=== PATIENT | male | born 1985 | race African-American/Black ===

== ENCOUNTER 2019-03-02 16:00 | Emergency (ER) | payer OTHER ==
[~2019-03-02] VITALS: Ht 167.6 cm; Wt 140.6 kg
[2019-03-02 17:30] VITALS: BP 168/78
== END 2019-03-02 17:30 | disposition home or self-care (01) ==
LOC: ER 16:00
DX: J02.0 Streptococcal pharyngitis (principal)

== ENCOUNTER 2019-10-22 16:25 | Emergency (ER) | payer BC ==
[~2019-10-22] VITALS: Ht 167.6 cm; Wt 138.3 kg
[2019-10-22 17:10] VITALS: BP 132/104
== END 2019-10-22 17:09 | disposition home or self-care (01) ==
LOC: ER 16:25
DX: J06.9 Acute upper respiratory infection, unspecified (principal)

== ENCOUNTER 2020-08-22 09:32 | Emergency (ER) | payer BC ==
[~2020-08-22] VITALS: Ht 167.6 cm; Wt 131.5 kg
[2020-08-22] MEDS ORDERED: HYDROCODON-ACE1 EAC7 PO (09:48)
[2020-08-22 10:05] VITALS: BP 162/101
== END 2020-08-22 10:06 | disposition home or self-care (01) ==
LOC: ER 09:32
DX: K08.89 Other specified disorders of teeth and supporting structures (principal)

== ENCOUNTER 2021-03-26 12:20 | Emergency (ER) | payer OTHER ==
[~2021-03-26] VITALS: Ht 167.6 cm; Wt 127.0 kg
[~2021-03-26 12:20] MED LIST: HYDROCODON-ACE1 EAC7 PO
[2021-03-26] MEDS ORDERED: NOHOMEMEDICATIONS (12:32)
[2021-03-26] MEDS ORDERED: PENICILLIN V P500 MG PO (13:36)
[2021-03-26] MEDS ORDERED: NAPROSYN500 MG PO (13:36)
[2021-03-26] MEDS ORDERED: NORCO5 PO (13:36)
[2021-03-26 16:20] VITALS: BP 155/102
== END 2021-03-26 16:19 | disposition home or self-care (01) ==
LOC: ER 12:20
DX: K04.7 Periapical abscess without sinus (principal); M65.311 Trigger thumb, right thumb; F12.90 Cannabis use, unspecified, uncomplicated; Z88.8 Allergy status to other drugs, medicaments and biological substances; Z91.018 Allergy to other foods